=== PATIENT | female | born 1960 | race Caucasian/White ===

== ENCOUNTER 2018-02-15 08:23 | Emergency (ER) | payer OTHER ==
[~2018-02-15] VITALS: Ht 172.7 cm; Wt 57.6 kg
[2018-02-15] MEDS ORDERED: SYNTHROID50 MCG PO (08:31)
--- NOTE | 2018-02-15 12:15 | EKG ---
[facility] [address] [facility] [place] [address] Signed Sinus bradycardia Right bundle branch block Abnormal ECG No previous ECGs available Confirmed by BUSHRA FINN MD ([id number]) on 02/15/2018 12:14:59 PM Electronically Signed By: BUSHRA FINN MD 02/15/18 1215 PATIENT NAME: OLGA LIDIA POLLOCK Electrocardiogram DATE OF : 60 PHYSICIAN: BUSHRA FINN MD REPORT #: [id number] REPORT IS CONFIDENTIAL AND NOT TO BE RELEASED WITHOUT AUTHORIZATION
== END 2018-02-15 11:22 | disposition short-term general hospital (02) ==
LOC: ED 08:23
DX: H33.22 Serous retinal detachment, left eye (principal); Z79.899 Other long term (current) drug therapy
CPT/HCPCS: 70450; 70496; 70498; 80053; 85025; 85651; 93005; 93010; 99285; Q9967

== ENCOUNTER 2019-06-11 19:28 | Emergency (ER) | payer OTHER ==
[~2019-06-11] VITALS: Ht 172.7 cm; Wt 59.0 kg
[~2019-06-11 19:28] MED LIST: CALTRATE 600 +1 EAC1 PO; CURCUMIN1 GM MISC; ESTRADIOL1 MG PO; FLAX SEED OIL1000 MG PO; IBUPROFEN600 MG PO; MAPAP325 MG PO; OXYCODON-ACETA1 EAC2 PO; SYNTHROID50 MCG PO; VITAMIN B122500 MCG PO
--- NOTE | 2019-06-11 20:16 | EKG ---
[facility] [address] [facility] [place] [address] Signed Sinus bradycardia Incomplete right bundle branch block Borderline ECG When compared with ECG of 15-FEB-2018 09:03, Incomplete right bundle branch block has replaced Right bundle branch block Confirmed by SCAR DEWEY MD ([id number]) on 06/11/2019 8:16:25 PM Electronically Signed By: SCAR DEWEY MD 06/11/192015 PATIENT NAME: PHILLSEANMiya RUSH Electrocardiogram DATE OF : 60 PHYSICIAN: SCAR DEWEY MD REPORT #: [id number] REPORT IS CONFIDENTIAL AND NOT TO BE RELEASED WITHOUT AUTHORIZATION
== END 2019-06-11 20:57 | disposition home or self-care (01) ==
LOC: ED 19:28
DX: R07.89 Other chest pain (principal); M54.2 Cervicalgia; Z79.899 Other long term (current) drug therapy
CPT/HCPCS: 71046; 80053; 83735; 84484; 85025; 85379; 93005; 93010; 99285-25

== ENCOUNTER 2022-03-01 07:55 | Day surgery (SDC) | payer OTHER ==
[~2022-03-01] VITALS: Ht 172.7 cm; Wt 61.0 kg
[2022-03-01] MEDS ORDERED: ALLERCLEAR10 MG PO (08:23)
--- NOTE | 2022-03-01 10:00 | NUR ---
03/01/22 [address] 0955- PT ARRIVES TO PACU AROUSABLE TO STIMULI. PT REPORTS NO PAIN OR NAUSEA. RESP EVEN AND UNLABORED. OXYGEN SAT HIGH 90'S TO 100% ON 4L VIA CO2 NC. 0959- OXYGEN TITRATED DOWN TO 2L VIA CO2 NC. 1000- DR. BROWN AT THE BEDSIDE TO TALK WITH THE PT.
--- NOTE | 2022-03-01 14:40 | OR ---
[facility] [address] [place] [place], [place] [address] Signed DATE OF OPERATION: 03/01/2022 SURGEON: Jemal Brown MD PREOPERATIVE DIAGNOSIS: Colon screening. POSTOPERATIVE DIAGNOSIS: Normal colon to cecum. PROCEDURE: Total colonoscopy to cecum. ANESTHESIA: Intravenous sedation, fentanyl 150 mcg and versed 9 mg. INDICATIONS: This 61-year-old white woman is a patient of Rosa Ferguson and known to me from the past having undergone colonoscopy in 2011. At that time, she had no findings of polyps or other abnormality. She was noted to have a tortuous colon, but no other abnormality. She is free of symptoms, having no bleeding, diarrhea, or constipation and no family history of colon cancer. She is here to undergo screening colonoscopy, understands the risks of bleeding, infection, and perforation. FINDINGS: The prep was adequate with irrigation. Complete colonoscopy was undertaken to the cecum without question. There was no sign of polyps, diverticular formation, colitis, or cancer. DESCRIPTION OF PROCEDURE: The patient was brought to the endoscopy suite and placed in lateral decubitus position given intravenous sedation to the point of slurred speech and nystagmus. Digital rectal examination was normal. An Olympus video colonoscope was passed into the rectum and manipulated throughout the colon ultimately intubating the cecum itself. Irrigation was required as needed. The scope was withdrawn from that point. Examination throughout showed no sign of polyps, diverticular formation, colitis, or cancer. Retroflexed view was normal as well. The scope was removed, the patient was taken to the recovery room in good condition. Electronically Signed By: JEMAL BROWN MD 03/01/22 1440 PATIENT NAME: OLGA LIDIA POLLOCK OPERATIVE REPORT DATE OF : 60 REPORT #: [id number] PHYSICIAN: JEMAL BROWN MD PCP: ROSA FERGUSON-Jj REPORT IS CONFIDENTIAL AND NOT TO BE RELEASED WITHOUT AUTHORIZATION [facility] [address] [place], [place] [address] Signed CONCLUDING DIAGNOSIS: Normal colon. PLAN: Recommend repeat colonoscopy in 10 years or sooner if symptoms should occur. She will return to the ongoing care of SEAN Blake MD LAMONT Piper/SUHAIL /[id number] cc: Rosa Ferguson Copies: ~ Electronically Signed By: JEMAL BROWN MD 03/01/22 1440 PATIENT NAME: OLGA LIDIA POLLOCK OPERATIVE REPORT DATE OF : 60 REPORT #: [id number] PHYSICIAN: JEMAL BROWN MD PCP: ROSA FERGUSON REPORT IS CONFIDENTIAL AND NOT TO BE RELEASED WITHOUT AUTHORIZATION
== END 2022-03-01 10:39 | disposition home or self-care (01) ==
LOC: OPS 07:55 → DS 07:57 → OPS 10:00
PROVIDERS: ATTEND Surgery
PROC: 0DJD8ZZ Inspection of Lower Intestinal Tract, Via Natural or Artificial Opening Endoscopic (ICD-10-PCS; principal; 2022-03-01 10:00)
DX: Z12.11 Encounter for screening for malignant neoplasm of colon (principal); E03.9 Hypothyroidism, unspecified; Z90.49 Acquired absence of other specified parts of digestive tract
CPT/HCPCS: 99153; G0500; J2250; J3010; J7121